=== PATIENT | female | born 1980 | race Caucasian/White ===

== ENCOUNTER → 2016-11-19 | Outpatient (CLI) | payer OTHER | END | disposition home or self-care (01) | LOC: LAB 17:10 | PROVIDERS: ATTEND Family Medicine | DX: N92.5 Other specified irregular menstruation (principal) ==

== ENCOUNTER → 2020-03-09 | Outpatient (CLI) | payer SELFPAY | LOC: YCFC.O 11:55 | PROVIDERS: ATTEND Family Medicine | DX: L65.9 Nonscarring hair loss, unspecified (principal); Z13.220 Encounter for screening for lipoid disorders; E66.9 Obesity, unspecified ==

== ENCOUNTER → 2020-03-09 | Outpatient (CLI) | payer OTHER | LOC: YCFC.O 11:28 | PROVIDERS: ATTEND Family Medicine | DX: R51.9 Headache, unspecified (principal) ==

== ENCOUNTER → 2020-03-13 | Outpatient (CLI) | payer SELFPAY | LOC: YCFC.O 15:34 | PROVIDERS: ATTEND Family Medicine | DX: R73.9 Hyperglycemia, unspecified (principal) ==